=== PATIENT | female | born 1940 ===

== ENCOUNTER 2024-03-08 14:26 | Outpatient (AMB) | payer OTHER, SELFPAY ==
--- NOTE | 2024-03-08 14:33 | HO.NEPHOV ---
HPI HPI Comments History of Present Illness Details Thank you for referring Stevenson for evaluation and management of her chronic kidney disease and hypertension. She is known to have hypertension for a long time and had been on multiple antihypertensive medications. Lately he she was having low blood pressures with her serum creatinine going up to 1.8. At that time medications were adjusted and her blood pressure improved with her serum creatinine improving to 1.4. She underwent renal ultrasound which showed a small left kidney. She denied any peripheral arterial disease, coronary artery disease, congestive heart failure, CVA, peripheral neuropathy, carotid disease, epistaxis, hematemesis, melena, hematuria, nephrolithiasis. 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 She is tolerating LAWRENCE inhibitor well. She does not take excessive nonsteroidal anti-inflammatories. She denies new bone or back pain. She was accompanied by her daughter in the office today. [facility] Medical History (Updated 03/08/24 @ 14:56 by Kenneth Garvey MD) H/O sigmoidoscopy Chronic kidney disease, stage 3a MALT lymphoma Hypertension (HFpEF) heart failure with preserved ejection fraction Family History (Updated 03/08/24 @ 14:39 by Toya Welsh MA) Sister Diabetes Mother Diabetes Brother Diabetes Social History (Updated 03/08/24 @ 14:39 by Toya Welsh MA) Alcohol intake: never Patient Tobacco Use Status: Never used Tobacco Vital Signs 03/08/24 14:35 Height 4 ft 10 in Weight 164 lb BMI 34.3 BP 122/54 L Blood Pressure Location Lt brachial Position Sitting Pulse 84 Pulse Source Pulse Oximeter Pulse Oximetry (%) 95 Oxygen Delivery Method Room Air Physical Exam Vital Signs: Last Vital Signs Pulse 84 03/08/24 14:35 BP 122/54 L 03/08/24 14:35 Pulse Ox 95 03/08/24 14:35 Oxygen Delivery Method Room Air 03/08/24 14:35 BMI result Body Mass Index 34.3 Const General: comfortable and no acute distress Orientation/consciousness: patient oriented x3 HEENT Head: Yes normocephalic Mouth: Normal oral and palatal mucosa present Eyes EOM: EOMs intact bilaterally Neck Neck: Yes supple Resp Auscultation: clear to auscultation bilaterally Cardio Jugular venous distension: no JVD Rate: regular rate GI Palpation (GI): Soft to palpation Auscultation: normal bowel sounds General: Yes no CVA tenderness Back/Spine/Pelvis Back: no CVA tenderness Skin General skin exam: no rashes or lesions noted Neuro General: patient oriented x3 and moves all extremities Extrem General: Yes no pedal edema Assessment & Plan Assessment & Plan (1) Hypertension: Code(s): I10 - Essential (primary) hypertension Qualifiers: Hypertension type: primary hypertension Qualified Code(s): I10 - Essential (primary) hypertension (2) Chronic kidney disease, stage 3a: Code(s): N18.31 - Chronic kidney disease, stage 3a Plan Stevenson has CKD stage 3 at baseline. She has smaller left kidney. She likely has renovascular disease. She will benefit from Doppler of her renal arteries. I have ordered further workup. She is on LAWRENCE-inhibitor. She needs to be on a low-sodium diet. She can most likely maintain her blood pressure and optimal volume status by low-sodium diet and avoiding regular diuretics. She should not take any nonsteroidal anti-inflammatories. Her blood pressure is currently at goal. I did not make any medication changes today. More than 50% of the time during this visit has been utilized to discuss about etiologies of her DIXIE, CKD, hypertension and its management strategies. I answered all her and her daughter's questions. Follow-up appointment given. Orders: Orders Calcium Today I10 - Essential (primary) hypertension, N18.31 - Chronic kidney disease, stage 3a Electrolytes Today I10 - Essential (primary) hypertension, N18.31 - Chronic kidney disease, stage 3a Blood Urea Nitrogen Today I10 - Essential (primary) hypertension, N18.31 - Chronic kidney disease, stage 3a Creatinine Today I10 - Essential (primary) hypertension, N18.31 - Chronic kidney disease, stage 3a Parathyroid Hormone Intact Today I10 - Essential (primary) hypertension, N18.31 - Chronic kidney disease, stage 3a Protein Creatinine Ratio, Ur Today I10 - Essential (primary) hypertension, N18.31 - Chronic kidney disease, stage 3a Immunofixation Pnl, Serum Today I10 - Essential (primary) hypertension, N18.31 - Chronic kidney disease, stage 3a Complete Blood Count Auto Diff Today I10 - Essential (primary) hypertension, N18.31 - Chronic kidney disease, stage 3a Phosphorus Today I10 - Essential (primary) hypertension, N18.31 - Chronic kidney disease, stage 3a Vitamin D 25-OH Total Today I10 - Essential (primary) hypertension, N18.31 - Chronic kidney disease, stage 3a Coding Level of Care Code New Pt Level 4 (48505) Diagnoses Primary hypertension I10 Hypertension type: primary hypertension Chronic kidney disease, stage 3a N18.31 Results Reviewed Nephrology Results: No Data to Display
[2024-03-08 14:35] VITALS: BP 122/54; PULSE 84; O2SAT 95; BMI 34.3
== END 2024-03-08 15:04 | disposition home or self-care (01) ==
PROVIDERS: PCP Physician Assistant Medical; Visit Provider Internal Medicine Nephrology
DX: I10 Essential (primary) hypertension (principal); N18.31 Chronic kidney disease, stage 3a
CPT/HCPCS: 99204

== ENCOUNTER → 2024-03-08 14:26 | Outpatient (BNVA) | payer OTHER, SELFPAY | PROVIDERS: PCP Physician Assistant Medical; Visit Provider Internal Medicine Nephrology | DX: I12.9 Hypertensive chronic kidney disease with stage 1 through stage 4 chronic kidney disease, or unspecified chronic kidney disease (principal); N18.31 Chronic kidney disease, stage 3a | CPT/HCPCS: 99202 ==